=== PATIENT | female | born 1975 | race Caucasian/White ===

== ENCOUNTER → 2020-12-15 11:43 | Outpatient (BNVA) | payer BC, SELFPAY | PROVIDERS: PCP Family Medicine; Visit Provider Internal Medicine Cardiovascular Disease | DX: R06.02 Shortness of breath (principal); I50.33 Acute on chronic diastolic (congestive) heart failure; R06.00 Dyspnea, unspecified; R07.89 Other chest pain; R55 Syncope and collapse; N18.9 Chronic kidney disease, unspecified; R00.0 Tachycardia, unspecified; Z72.0 Tobacco use; G43.909 Migraine, unspecified, not intractable, without status migrainosus; I10 Essential (primary) hypertension; R94.31 Abnormal electrocardiogram [ECG] [EKG]; Z79.01 Long term (current) use of anticoagulants | CPT/HCPCS: 80048; 83880; 84443; 85025 ==

== ENCOUNTER 2021-06-05 06:05 | Outpatient (CLI) | payer BC, SELFPAY ==
--- NOTE | 2021-06-05 06:15 | USCV_ITS ---
Chey Yina Age: 45 Gender: F : 1975 Exam Date: 06/05/2021 06:15 Ordering Phys: Marie William MD ([email or web address]) Technologist: Jayashree Herbert [place] [facility] [place]: CHEST PAIN RAPID HEART RATE SOB BP: / HR: 62 Rhythm: Sinus Technical Quality: Adequate MEASUREMENTS (Male / Female) Normal Values 2D ECHO LV Diastolic Diameter PLAX 3.1 cm 4.2 - 5.9 / 3.9 - 5.3 cm LV Systolic Diameter PLAX 2.4 cm LV Chamber Size 2.8 cm IVS Diastolic Thickness 1.5 cm 0.6 - 1.0 / 0.6 - 0.9 cm IVS Systolic Thickness 1.8 cm LVPW Diastolic Thickness 1.3 cm 0.6 - 1.0 / 0.6 - 0.9 cm LVPW Systolic Thickness 1.5 cm RV Chamber Size 2.4 cm LVOT Diameter 2.0 cm LV Ejection Fraction 2D Teich 48.4 % LV Ejection Fraction MOD 2C 62.3 % LV Ejection Fraction 2C AL 64.0 % LA Diameter 2.9 cm LA Width 3.6 cm LA Height 3.5 cm RA Width 3.0 cm RA Height 3.5 cm Aorta at Sinotubular Diameter 2.7 cm M-MODE Aortic Annulus Diameter 3.1 cm LA Ao Ratio MM 1.2 MV E Point Septal Separation 0.3 cm DOPPLER AV Peak Velocity 154.0 cm/s LVOT Peak Velocity 113.0 cm/s AV Area Cont Eq vti 2.3 cm squared AV Area Cont Eq pk 2.4 cm squared MV Area PHT 2.7 cm squared Mitral E to A Ratio 1.2 MV E' Velocity 46.5 cm/s Mitral E to MV E' Ratio 7.0 Mitral E to LV E' Lateral Ratio 6.9 Mitral E to LV E' Septal Ratio 7.1 TR Peak Velocity 125.9 cm/s TR Peak Gradient 6.3 mmHg TR Mean Velocity 85.7 cm/s TR Mean Gradient 3.5 mmHg TR Velocity Time Integral 32.2 cm TV Peak E Velocity 58.0 cm/s Right Atrial Pressure 3.0 mmHg Pulmonary Artery Systolic Pressu 9.3 mmHg PV Peak Velocity 104.0 cm/s RV Acceleration Time 0.1 s RV Ejection Time 0.3 s RV AcT/ET 0.3 FINDINGS Left Ventricle Normal left ventricular size and systolic function, EF 62 %. No regional wall motion abnormalities. Mild left ventricular hypertrophy. Right Ventricle The right ventricle is normal in size and function. Right Atrium Mildly increased right atrial size. Left Atrium Mildly increased left atrial size. Mitral Valve No gross abnormalities noted Aortic Valve No gross abnormalities noted Tricuspid Valve Trace tricuspid valve regurgitation. Pulmonic Valve Pulmonic valve not well visualized. Pericardium Normal pericardium without effusion. Aorta Normal ascending aorta dimension. CONCLUSIONS Normal left ventricular size and systolic function, EF 62 %. No regional wall motion abnormalities. Mild left ventricular hypertrophy. Mildly dilated right atrium and right ventricle. Possibly normal PA pressure because of poor diaper singular, this could be misleading Trace tricuspid valve regurgitation. There is no pericardial effusion. There are no intracardiac masses. No previous study is available for comparison. Dr Marie William MD FAC (Electronically Signed) Final Date: 05 June 2021 09:51 S
== END 2021-06-05 06:06 | disposition home or self-care (01) ==
LOC: RAD 06:05
PROVIDERS: PCP Family Medicine; Visit Provider Internal Medicine Cardiovascular Disease
DX: R06.00 Dyspnea, unspecified (principal); R07.89 Other chest pain; I07.1 Rheumatic tricuspid insufficiency
CPT/HCPCS: 93306

== ENCOUNTER 2021-06-10 09:46 | Outpatient (CLI) | payer BC, SELFPAY ==
--- NOTE | 2021-06-10 10:51 | ECG_ITS ---
[facility] Test Date: 2021-06-10 Pat Name: Yina Guerrier Department: Room: Gender: Female Portfolio Specialist: Miryamjanel VillatoroJennifer : 1975 Requested By: Marie William Order Number: [id number] Reading MD: Marie William M.D. Interpretive Statements NAME OF STUDY: LEXISCAN SESTAMIBI STRESS TEST INDICATION: Chest Pain, PROCEDURE: At the baseline, the EKG revealed normal sinus rhythm with diffuse nonspecific T wave changes. The baseline blood pressure was 104/86 mm Hg with a heart rate of 63 beats/min. Lexiscan was infused over a period of 20 seconds. A total of 0.4 milligrams of Lexiscan was infused. The stress phase was continued for a total of 5 minutes. Heart rate at the end of the stress phase was 83 with a blood pressure 203/86. The EKG at the peak infusion revealed no significant changes. Sestamibi was injected 20 seconds after the Lexiscan infusion. Blood pressure at the end of the recovery phase was 121/75 with a heart rate of 70 per minute. CONCLUSION: 1. No significant EKG changes with the LexiScan infusion 2. No LexiScan induced chest pain or cardiac arrhythmia 3. Normal blood pressure and heart rate response 4. Sestamibi/sestamibi perfusion scan pending; see separate report. Electronically Signed On 06-12-2021 14:52:09 CDT by Marie William M.D. [id number]
--- NOTE | 2021-06-10 10:52 | NMCV_ITS ---
NM jovanny perf SPECT r/s* [id number] Yina Guerrier Age: 45 Gender: F : 1975 Exam Date: 06/10/2021 11:47 Ordering Phys: Marie William MD ([email or web address]) Technologist: AMANDA Luu Exam Location: [facility] Indications: SHORTNESS OF BREATH STRESS TEST Please see separate stress test report in [facility] for full findings IMAGE PROTOCOL Rest/Stress 1 Lexiscan Day Radiopharmaceutical Dose (mCi) Administration Site Administered by Rest: Tc-99m 11.0 IV AMANDA Luu Sestamibi Stress:Tc-99m 33.0 IV AMANDA Luu Sestamibi Rest: 10-Jun-2021 60 Discovery 630 Stress: 10-Jun-2021 30 Discovery 630 0.4mg Lexiscan. Images obtained in supine and prone position. SPECT RESULTS Technical Quality: Excellent Raw Data Analysis: Normal, Breast attenuation Image Corrections: No attenuation or motion correction applied Summed Stress Score: 6 Summed Rest Score: 15 Summed Difference Score: 0 PERFUSION FINDINGS Small to moderate areas of decreased tracer uptake were noted in the mid and apical inferior, apical anterior and LV apex. No significant reversibility was noted in these regions. FUNCTIONAL RESULTS (calculated via Gated SPECT) Stress Image LV EF (%): 77 Stress EDV (mL):99 TID: 0.92 Stress ESV (mL):23 FUNCTIONAL FINDINGS: Segmental wall motion analysis revealing no gross wall motion normalities. IMPRESSIONS 1. Myocardial perfusion imaging revealing small areas of slightly decreased persistent tracer uptake in the inferior and apical regions, most likely are present attenuation artifacts. 2. Normal LV ejection fraction 77%. 3. LV wall motion analysis revealing no gross wall motion abnormalities 4. Normal LV volume. Low probability for coronary ischemia, based on the above findings Dr Marie William MD [facility] (Electronically Signed) Final Date: 11 June 2021 17:37 S
[2021-06-10 10:54] VITALS: BMI 48.0
--- NOTE | 2021-06-10 11:17 | PC.NURSE ---
Clarification of Stress test Pt arrived and had previous order placed for exercise mibi which was cancelled in EMR. Pt arrived on home oxygen, with shortness of breath with exertion and expiratory wheezes. Pt reports taking beta blockers. Dr. William notified by phone of nurse assessment and pt reports of inability to complete exercise stress test. Verbal orders received to place order for LEXISCAN MIBI.
[2021-06-10] MEDS: regadenoson 0.4 Mg/5 ml Syringe IVP (12:19)
[2021-06-10 12:49] VITALS: BP 121/75; PULSE 75
== END 2021-06-10 09:47 | disposition home or self-care (01) ==
LOC: RAD 09:56 → CDL 10:52
PROVIDERS: PCP Family Medicine; Visit Provider Internal Medicine Cardiovascular Disease
DX: R07.9 Chest pain, unspecified (principal); R06.02 Shortness of breath
CPT/HCPCS: 78452; 93017; A9500; J2785